=== PATIENT | female | born 1960 | race African-American/Black ===

== ENCOUNTER 2017-07-18 07:52 | Day surgery (SDC) | payer BC ==
[~2017-07-18] VITALS: Ht 165.1 cm; Wt 87.5 kg
[2017-07-18] MEDS ORDERED: SODIUM CHLORIDE 0.9% 1,000 ML IV SCH (08:30)
[2017-07-18 08:40] LABS: BASOPHILS % 0.3 % (0.0-2.0); EOSINOPHILS % 2.4 % (0.0-5.0); HEMATOCRIT. 36.4 % (36.0-48.0); HEMOGLOBIN. 12.3 g/dL (12.0-16.0); LYMPHOCYTES % 30.6 % (20.0-50.0); MEAN CORPUSCULAR HEMOGLOBIN 29.7 pg (28.0-32.0); MONOCYTES % 10.5 % (2.0-8.0); NEUTROPHILS % 56.2 % (40.0-76.0); PLATELET 240 x1000/uL (130-400); RED BLOOD CELL COUNT 4.13 mill/uL (4.2-5.4); RED CELL DISTRIBUTION WIDTH 13.2 % (11.6-14.6)
[2017-07-18 08:40] LABS: CLARITY URINE CLEAR (CLEAR); COLOR URINE YELLOW (YELLOW); GLUCOSE URINE NEGATIVE (NEGATIVE); KETONES URINE NEGATIVE (NEGATIVE); LEUKOCYTE ESTERASE URINE 3+ (NEGATIVE); NITRITE URINE NEGATIVE (NEGATIVE); OCCULT BLOOD URINE 1+ (NEGATIVE); PROTEIN URINE NEGATIVE (NEGATIVE); SPECIFIC GRAVITY URINE 1.012 (1.005-1.030); UROBILINOGEN URINE 0.2 E.U./dL (0.2-1.0)
[2017-07-18 08:44] LABS: UCG SCREEN NEGATIVE
[2017-07-18 08:48] LABS: PROTHROMBIN TIME 10.2 sec (9.4-11.6)
[2017-07-18 08:55] LABS: CARBON DIOXIDE 29 mEq/L (21-32); CHLORIDE 105 mEq/L (98-107)
[2017-07-18] MEDS ORDERED: HYDR25TA PO (09:27)
[2017-07-18] MEDS ORDERED: LOT205 PO (09:27)
[2017-07-18] MEDS ORDERED: ACET-2178 PO (09:27)
[2017-07-18] MEDS ORDERED: PROPOFOL 200MG/20ML VIAL IV ONE (12:03)
[2017-07-18] MEDS ORDERED: MIDAZOLAM HCL 2 MG/2 ML VIAL ONE (12:04)
[2017-07-18] MEDS ORDERED: FENTANYL CITRATE/PF 50MCG/ML 2ML VIAL ONE (12:04)
[2017-07-18] MEDS ORDERED: LIDOCAINE HCL 1% 20ML VIAL (Pyxis) INJ ONE (12:05)
[2017-07-18] MEDS ORDERED: CEFAZOLIN SODIUM 1000MG/VIAL ONE (12:12)
[2017-07-18] MEDS ORDERED: ONDANSETRON HCL 4MG/2ML VIAL ONE (12:25)
[2017-07-18] MEDS ORDERED: METOCLOPRAMIDE HCL 10MG/2ML VIAL ONE (12:25)
[2017-07-18] MEDS ORDERED: HYDROMORPHONE HCL/PF 2MG/ML CPJ IV PRN (12:30)
[2017-07-18] MEDS ORDERED: LABETALOL HCL 20MG/4ML CARPUJECT IV PRN (12:30)
[2017-07-18] MEDS ORDERED: ONDANSETRON HCL 4MG/2ML VIAL IV PRN (12:30)
[2017-07-18] MEDS ORDERED: MEPERIDINE HCL/PF 25MG/ML CPJ IV PRN (12:30)
[2017-07-18] MEDS ORDERED: ACETAMINOPHEN 325MG TABLET PO PRN (13:30)
== END 2017-07-18 14:00 | disposition home or self-care (01) ==
LOC: OR 07:52
PROVIDERS: ATTEND Obstetrics & Gynecology Obstetrics
DX: N84.1 Polyp of cervix uteri (principal); N84.0 Polyp of corpus uteri; I10 Essential (primary) hypertension; E66.9 Obesity, unspecified
CPT/HCPCS: 36415; 58558; 80048; 81001; 81025; 85025; 85610; 85730; 88305; 93005; J0690; J2250; J2405; J2765; J3010; J3490; J7030; J2704